=== PATIENT | female | born 1965 | race Caucasian/White ===

== ENCOUNTER 2023-07-15 08:51 | Emergency (ER) | payer OTHER ==
[~2023-07-15] VITALS: Ht 165.1 cm; Wt 151.0 kg
[~2023-07-15 08:51] MED LIST: WELBUTRIN
[2023-07-15 08:58] VITALS: BP 152/57; PULSE 101; RESP 20; TEMP 99.9; O2SAT 91
[2023-07-15] MEDS ORDERED: ALBUTEROL 0.083% 2.5 MG/3 ML NEBU INH ONE (09:25)
[2023-07-15] MEDS ORDERED: ALBUTEROL SULFATE/IPRATROPIU 3 ML SOL IH ONE (09:25)
[2023-07-15] MEDS ORDERED: predniSONE 20 MG TAB PO ONE (09:25)
[2023-07-15] MEDS ORDERED: KETOROLAC 60 MG/2 ML VIAL IM ONE (09:30)
[2023-07-15] MEDS ORDERED: PRED20TA5 PO (09:31)
[2023-07-15] MEDS ORDERED: IBUP-2213 PO (09:31)
[2023-07-15 09:37] VITALS: O2SAT 91
[2023-07-15 09:40] VITALS: PULSE 82; PULSE 84; RESP 16; O2SAT 94
== END 2023-07-15 10:11 | disposition home or self-care (01) ==
LOC: MED 08:51
DX: J45.901 Unspecified asthma with (acute) exacerbation (principal); I10 Essential (primary) hypertension; Z98.890 Other specified postprocedural states; Z79.899 Other long term (current) drug therapy; Z79.1 Long term (current) use of non-steroidal anti-inflammatories (NSAID)
CPT/HCPCS: 94640; 96372; 99283; J1885; J7512; J7613